=== PATIENT | female | born 1985 | race Caucasian/White ===

== ENCOUNTER 2021-02-02 17:15 | Emergency (ER) | payer MEDICAID ==
[~2021-02-02] VITALS: Ht 170.2 cm; Wt 81.6 kg
[2021-02-02] MEDS ORDERED: BROMFED DM COU473 ML PO (21:04)
== END 2021-02-02 21:15 | disposition home or self-care (01) ==
LOC: ER1 17:15
DX: U07.1 COVID-19 (principal); Z23 Encounter for immunization
CPT/HCPCS: 99283; M0243